=== PATIENT | male | born 1980 | race Two or more races ===

== ENCOUNTER 2017-01-02 19:49 | Emergency (ER) | payer SELFPAY ==
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
[2017-01-02 20:54] LABS: BASOPHIL # 0.1 K/uL (0.0-0.2); BASOPHIL % 0.8 %; EOSINOPHIL # 0.6 K/uL (0.0-0.5); EOSINOPHIL % 7.5 %; HEMATOCRIT 42.5 % (37.0-53.0); HEMOGLOBIN 15.1 g/dL (12.0-17.0); IMMATURE GRANULOCYTE % 0.4 %; LYMPHOCYTE # 2.5 K/uL (0.8-4.0); LYMPHOCYTE % 32.6 %; MCH 31.5 pg (27.0-34.0); MCHC 35.5 gm/dL (32.0-36.5); MCV 88.5 fl (83.0-98.0); MONOCYTE # 0.5 K/uL (0.0-1.0); MONOCYTE % 6.6 %; NEUTROPHIL % 52.1 %; NRBC % 0 /100WBC (0-0.00); PLATELET COUNT 311 K/uL (150-450); RDW-CV 12.5 % (11.9-14.6); WBC 7.8 K/uL (4.0-11.0)
[2017-01-02 21:01] LABS: INR - (THERAPEUTIC) 0.93 (0.92-1.07); PROTIME 9.8 SECONDS (9.8-11.4); PTT 27 SECONDS (25-32)
[2017-01-02 21:12] LABS: ALBUMIN 3.9 gm/dL (3.5-5.0); ALK PHOS 114 IU/L (33-138); ALT 40 IU/L (12-78); ANION GAP 12.9 (10.0-19.0); AST 24 IU/L (10-40); BLOOD UREA NITROGEN 17 mg/dL (6-24); CALCIUM 8.9 mg/dL (8.5-10.5); CHLORIDE 105 mMol/L (96-110); CO2 24 mMol/L (22-32); CPK 94 IU/L (35-332); CREATININE 1.1 mg/dL (0.6-1.3); POTASSIUM 3.9 mMol/L (3.7-5.1); SODIUM 138 mMol/L (135-145); TOTAL BILIRUBIN 0.3 mg/dL (0.0-1.5); TOTAL PROTEIN 7.8 g/dL (6.0-8.4)
== END 2017-01-02 21:33 | disposition disaster alternative care site (69) ==
LOC: GMED 19:49
PROVIDERS: Emergency Medicine
DX: J40 Bronchitis, not specified as acute or chronic (principal); Z98.890 Other specified postprocedural states; Z79.899 Other long term (current) drug therapy